=== PATIENT | female | born 1960 | race Caucasian/White ===

== ENCOUNTER 2021-09-21 13:26 | Emergency (ER) | payer SELFPAY ==
[2021-09-21] MEDS ORDERED: HYDROcodone/Acetaminophen 10/325 mg Tablet ONE (16:32)
== END 2021-09-21 16:52 | disposition home or self-care (01) ==
LOC: CSHERS 13:26
DX: K04.7 Periapical abscess without sinus (principal); F17.210 Nicotine dependence, cigarettes, uncomplicated
CPT/HCPCS: 99283

== ENCOUNTER 2022-07-01 18:09 | Emergency (ER) | payer SELFPAY ==
[2022-07-01] MEDS ORDERED: HYDROcodone/Acetaminophen 7.5/325 mg Tablet ONE ×2 (18:50→18:53)
== END 2022-07-01 20:25 | disposition home or self-care (01) ==
LOC: CSHERS 18:09
DX: S43.401A Unspecified sprain of right shoulder joint, initial encounter (principal); F17.210 Nicotine dependence, cigarettes, uncomplicated; X50.9XXA Other and unspecified overexertion or strenuous movements or postures, initial encounter